=== PATIENT | female | born 1990 | race American Indian/Alaskan Native ===

== ENCOUNTER 2021-01-31 20:39 | Emergency (ER) | payer BC ==
[2021-01-31] MEDS ORDERED: SODIUM CHLORIDE 0.9% 1000 ML 1,000 ML IV ONE (21:11)
[2021-01-31] MEDS ORDERED: KETOROLAC 30 MG/1 ML INJ IV ONE (21:11)
[2021-01-31] MEDS ORDERED: MORPHINE 4 MG/1 ML INJ IV ONE (21:11)
--- NOTE | 2021-01-31 21:14 | Emergency Department Report ---
ED Chest Pain HPI - General Chief Complaint: Chest Pain Stated Complaint: CHEST PAIN Time Seen by Provider: 01/31/21 21:06 Source: patient Mode of arrival: Ambulatory Limitations: No Limitations - History of Present Illness Initial Comments: 31-year-old -[place] female presents to the emergency department with a complaint of left-sided chest pain with some radiation towards the back that started about 1 hour prior to presentation. The pain is sharp, 10 out of 10. It worsens with movement of her torso, and with respirations. Despite the pain worsening with respirations, the patient denies any shortness of breath. She denies any fever, cough, nausea, vomiting, diaphoresis, lower extremity swelling. No past medical history. She denies any tobacco or illicit drug use. No family history of early [place]. No recent travel, sick contacts at home, recent immobility, recent surgery. She has not taken anything for symptoms prior to presentation today. Severity scale (0 -10): 10 - Related Data Home Medications Medication Instructions Recorded Confirmed Last Taken No Known Home Medications [No 01/31/21 01/31/21 Unknown Reported Home Medications] Allergies Allergy/AdvReac Type Severity Reaction Status Date / Time No Known Allergies Allergy Unverified 01/31/21 20:47 Heart Score - HEART Score History: Slightly suspicious EKG: Normal Age: < 45 Risk factors: No known risk factors Troponin: < normal limit HEART Score: 0 - EKG Read Time Time EKG Completed: 20:46 EKG Read Time: 20:55 ED Review of Systems ROS: Stated complaint: CHEST PAIN Other details as noted in HPI Comment: All other systems reviewed and negative Constitutional: denies: chills, fever Eyes: denies: eye pain, vision change ENT: denies: ear pain, throat pain Respiratory: denies: cough, shortness of breath Cardiovascular: chest pain. denies: palpitations, edema Gastrointestinal: denies: abdominal pain, vomiting Genitourinary: denies: dysuria, discharge Musculoskeletal: back pain. denies: arthralgia Skin: denies: rash, lesions Neurological: denies: headache, weakness ED Past Medical Hx - Past Medical History Previous Medical History?: No - Surgical History Past Surgical History?: No - Medications Home Medications: Home Medications Medication Instructions Recorded Confirmed Last Taken Type No Known Home Medications [No 01/31/21 01/31/21 Unknown History Reported Home Medications] ED Physical Exam - General Limitations: No Limitations - Other Other exam information: GENERAL: The patient is well-developed well-nourished. HENT: Normocephalic. Atraumatic. Patient has moist mucous membranes. EYES: Extraocular motions are intact. NECK: Supple. Trachea is midline. CHEST/LUNGS: Clear to auscultation. Patient is hyperventilating with shallow respirations secondary to pain. HEART/CARDIOVASCULAR: Regular. There is no tachycardia. There is no murmur. ABDOMEN: Abdomen is soft, nontender. Patient has normal bowel sounds. Obese habitus. SKIN: Skin is warm and dry. NEURO: The patient is awake, alert, and oriented. The patient is cooperative. The patient has no focal neurologic deficits. Normal speech. MUSCULOSKELETAL: There is no tenderness or deformity. There is no limitation range of motion. ED Course Vital Signs 01/31/21 01/31/21 01/31/21 20:45 21:22 21:31 Temperature 97.9 F Pulse Rate 106 H Respiratory 24 20 Rate Blood Pressure Blood Pressure 124/61 [Right] O2 Sat by Pulse 100 100 Oximetry 01/31/21 01/31/21 01/31/21 21:39 22:00 23:01 Temperature Pulse Rate Respiratory 22 Rate Blood Pressure 120/73 120/73 Blood Pressure [Right] O2 Sat by Pulse 100 97 99 Oximetry 02/01/21 02/01/21 00:17 01:01 Temperature Pulse Rate Respiratory Rate Blood Pressure 101/59 110/76 Blood Pressure [Right] O2 Sat by Pulse 100 99 Oximetry KOKO score - Koko Score Age > 65: (0) No Aspirin use within the Past 7 Days: (0) No 3 or more CAD Risk Factors: (0) No 2 or more Angina events in past 24 hrs: (1) Yes Known CAD with more than 50% Stenosis: (0) No Elevated Cardiac Markers: (0) No ST Deviation Greater than 0.5mm: (0) No KOKO Score: 1 ED Medical Decision Making - Lab Data Result diagrams: 01/31/21 21:16 01/31/21 21:16 Lab Results 01/31/21 01/31/21 01/31/21 Range/Units 21:16 21:16 21:16 WBC 6.7 (4.5-11.0) K/mm3 RBC 4.58 (3.65-5.03) M/mm3 Hgb 12.6 (10.1-14.3) gm/dl Hct 39.4 (30.3-42.9) % MCV 86 (79-97) fl MCH 28 (28-32) pg MCHC 32 (30-34) % RDW 13.7 (13.2-15.2) % Plt Count 360 (140-440) K/mm3 Lymph % (Auto) 32.3 (13.4-35.0) % [place] % (Auto) 8.6 H (0.0-7.3) % Eos % (Auto) 1.2 (0.0-4.3) % Baso % (Auto) 0.9 (0.0-1.8) % Lymph # (Auto) 2.2 (1.2-5.4) K/mm3 [place] # (Auto) 0.6 (0.0-0.8) K/mm3 Eos # (Auto) 0.1 (0.0-0.4) K/mm3 Baso # (Auto) 0.1 (0.0-0.1) K/mm3 Seg Neutrophils % 57.0 (40.0-70.0) % Seg Neutrophils # 3.8 (1.8-7.7) K/mm3 PT 13.0 (12.2-14.9) Sec. INR 0.88 (0.87-1.13) D-Dimer (0-234) ng/mlDDU Sodium 135 L (137-145) mmol/L Potassium 4.1 (3.6-5.0) mmol/L Chloride 100.4 (98-107) mmol/L Carbon Dioxide 23 (22-30) mmol/L Anion Gap 16 mmol/L BUN 11 (7-17) mg/dL Creatinine 0.7 (0.6-1.2) mg/dL Estimated GFR > 60 ml/min BUN/Creatinine Ratio 16 % Glucose 92 (65-100) mg/dL Calcium 9.4 (8.4-10.2) mg/dL Troponin T < 0.010 (0.00-0.029) ng/mL 01/31/21 02/01/21 Range/Units 21:16 00:15 WBC (4.5-11.0) K/mm3 RBC (3.65-5.03) M/mm3 Hgb (10.1-14.3) gm/dl Hct (30.3-42.9) % MCV (79-97) fl MCH (28-32) pg MCHC (30-34) % RDW (13.2-15.2) % Plt Count (140-440) K/mm3 Lymph % (Auto) (13.4-35.0) % [place] % (Auto) (0.0-7.3) % Eos % (Auto) (0.0-4.3) % Baso % (Auto) (0.0-1.8) % Lymph # (Auto) (1.2-5.4) K/mm3 [place] # (Auto) (0.0-0.8) K/mm3 Eos # (Auto) (0.0-0.4) K/mm3 Baso # (Auto) (0.0-0.1) K/mm3 Seg Neutrophils % (40.0-70.0) % Seg Neutrophils # (1.8-7.7) K/mm3 PT (12.2-14.9) Sec. INR (0.87-1.13) D-Dimer 227.30 (0-234) ng/mlDDU Sodium (137-145) mmol/L Potassium (3.6-5.0) mmol/L Chloride (98-107) mmol/L Carbon Dioxide (22-30) mmol/L Anion Gap mmol/L BUN (7-17) mg/dL Creatinine (0.6-1.2) mg/dL Estimated GFR ml/min BUN/Creatinine Ratio % Glucose (65-100) mg/dL Calcium (8.4-10.2) mg/dL Troponin T < 0.010 (0.00-0.029) ng/mL - EKG Data -: EKG Interpreted by Me EKG shows normal: sinus rhythm, axis, intervals, QRS complexes, ST-T waves Rate: normal - EKG Data When compared to previous EKG there are: previous EKG unavailable Interpretation: normal EKG - Radiology Data Radiology results: image reviewed interpreted by me: Chest x-ray does not show any acute process. There are no pleural effusions, obvious pneumonia and there is no pneumothorax. No widened mediastinum. - Medical Decision Making This patient presents with acute left-sided chest pain that began just prior to presentation. Heart and lung sounds are normal to auscultation and the patient does not appear in any respiratory distress. However the patient does appear in distress secondary to pain. EKG does not show any morphology consistent with ST elevation myocardial infarction. Chest x-ray does not show any pneumonia, pleural effusions, widened mediastinum, pneumothorax, or any other acute process. Patient's labs have been mostly unremarkable thus far including CBC, metabolic panel, negative troponins x2, and a negative D-dimer level. The patient has been given Toradol, morphine, [place], aspirin, IV fluid, and essentially has not had any significant relief in her pain. Therefore, despite having a low heart and KOKO score, the patient will be admitted to the hospital for further evaluation and treatment and was accepted for admission by the hospitalist, Dr. Brennan. Critical Care Time: No Critical care attestation.: If time is entered above; I have spent that time in minutes in the direct care of this critically ill patient, excluding procedure time. ED Disposition Clinical Impression: Intractable pain Chest pain Qualifiers: Chest pain type: unspecified Qualified Code(s): R07.9 - Chest pain, unspecified Disposition: 01 HOME / SELF CARE / HOMELESS Is pt being admited?: Yes Condition: Fair Time of Disposition: 00:58
[2021-01-31 21:40] LABS: Basophils # (Auto) 0.1 K/mm3 (0.0-0.1); Basophils % (Auto) 0.9 % (0.0-1.8); Eosinophils # (Auto) 0.1 K/mm3 (0.0-0.4); Eosinophils % (Auto) 1.2 % (0.0-4.3); Hematocrit 39.4 % (30.3-42.9); Hemoglobin 12.6 gm/dl (10.1-14.3); Lymphocytes # (Auto) 2.2 K/mm3 (1.2-5.4); Lymphocytes % (Auto) 32.3 % (13.4-35.0); Mean Corpuscular HGB Conc 32 % (30-34); Mean Corpuscular Volume 86 fl (79-97); Monocytes # (Auto) 0.6 K/mm3 (0.0-0.8); Monocytes % (Auto) 8.6 % (0.0-7.3); Platelet Count 360 K/mm3 (140-440); Red Blood Count 4.58 M/mm3 (3.65-5.03); Red Cell Distribution Width 13.7 % (13.2-15.2)
--- NOTE | 2021-01-31 21:48 | XRay Report ---
CHEST 1 VIEW 01/31/2021 8:41 PM INDICATION / CLINICAL INFORMATION: CP. COMPARISON: None available. FINDINGS: SUPPORT DEVICES: None. HEART / MEDIASTINUM: No significant abnormality. LUNGS / PLEURA: No significant pulmonary or pleural abnormality. No pneumothorax. ADDITIONAL FINDINGS: No significant additional findings. IMPRESSION: 1. No acute findings. Signer Name: Juan Ordoñez DO Signed: 01/31/2021 9:44 PM Workstation Name: [id number]
[2021-01-31 21:49] LABS: INR 0.88 (0.87-1.13)
[2021-01-31 21:57] LABS: Blood Urea Nitrogen 11 mg/dL (7-17); Calcium 9.4 mg/dL (8.4-10.2); Hemolysis Index 11
[2021-01-31 22:05] LABS: BUN/Creatinine Ratio 16
[2021-01-31] MEDS ORDERED: ONDANSETRON 4 MG/2 ML INJ IV ONE (22:12)
[2021-01-31] MEDS ORDERED: ASPIRIN 81 MG TAB CHEW PO ONE (22:14)
[2021-01-31] MEDS ORDERED: HYDROcodone/ACETAMINOPHEN 5-325 MG TAB PO ONE (23:04)
[2021-02-01 01:46] VITALS: BP 116/76
--- NOTE | 2021-02-03 11:32 | Electrocardiograph Report ---
[facility] Test Date: 2021-01-31 Test Time: 20:46:26 Pat Name: RODO MARCELO Department: Room: Gender: F [employer]: GARETH : 1990 Requested By: RYLIE GIL Order Number: [id number] Reading MD: Milton Phan Measurements Intervals Milton Rate: 85 P: 66 CT: 143 QRS: 43 QRSD: 87 T: 28 QT: 352 QTc: 420 Interpretive Statements Sinus rhythm No previous ECG available for comparison Electronically Signed On 02-03-2021 11:31:42 EST by Milton Phan
== END 2021-02-01 01:45 | disposition home or self-care (01) ==
LOC: ED 20:39
DX: R07.9 Chest pain, unspecified (principal)
CPT/HCPCS: 36415; 71045; 80048; 84484; 85025; 85379; 85610; 93005; 96361; 96374; 96375; 99284; J1885; J2270; J2405; J7030